=== PATIENT | male | born 1970 | race Caucasian/White ===

== ENCOUNTER 2024-10-15 15:16 | Emergency (ER) | payer BC, OTHER ==
[2024-10-15] MEDS ORDERED: Sodium Chloride 0.9% 10 ML Syringe FLUSH PRN (15:41)
[2024-10-15 15:56] LABS: BASOPHILS PERCENT AUTO 0.3 % (0.0-1.0); EOSINOPHILS ABSOLUTE AUTO 0.2 K/mm3 (0.0-0.4); EOSINOPHILS PERCENT AUTO 3.1 % (0.0-6.0); HEMOGLOBIN 17.3 gm/dl (14.0-18.0); IMMATURE GRAN ABSOLUTE AUTO 0.03 K/mm3 (0.00-0.05); IMMATURE GRAN PERCENT AUTO 0.4 % (0.0-0.4); LYMPHOCYTES PERCENT AUTO 25.5 % (24.0-44.0); MEAN CORPUSCULAR HEMOGLOBIN 28.4 pg (28.0-32.0); MEAN CORPUSCULAR HGB CONC 33.3 g/dl (32.0-36.0); MEAN CORPUSCULAR VOLUME 85.2 fl (83.0-99.0); MEAN PLATELET VOLUME 10.6 fl (9.4-12.4); MONOCYTES ABSOLUTE AUTO 0.8 K/mm3 (0.0-0.8); MONOCYTES PERCENT AUTO 10.1 % (0.0-8.0); NEUTROPHILS ABSOLUTE AUTO 4.8 K/mm3 (1.8-7.7); NEUTROPHILS PERCENT AUTO 60.6 % (41.0-71.0); PLATELET COUNT,PLT 193 K/mm3 (150-400); WHITE BLOOD CELL COUNT,WBC 7.84 K/mm3 (3.9-11.3)
[2024-10-15 16:15] LABS: A/G RATIO 0.9 (1-2); ALANINE AMINOTRANSFERASE,ALT 30 U/L (16-63); ALBUMIN 3.3 g/dl (3.4-5.0); ALKALINE PHOSPHATASE 116 U/L (46-116); ANION GAP 10.4 (5-15); ASPARTATE AMNIOTRANSFERASE,AST 15 U/L (15-37); BILIRUBIN TOTAL 0.4 mg/dL (0.2-1.0); BLOOD UREA NITROGEN,BUN 20 mg/dL (7-18); BUN/CREATININE RATIO 13.3 (14-18); C-REACTIVE PROTEIN 1.74 mg/dL (<0.30); CARBON DIOXIDE,CO2 29 mEq/L (21-32); CHLORIDE,CL 101 mEq/L (98-107); CREATININE 1.5 mg/dL (0.7-1.3); ESTIMATED GFR 55 mL/min (>60); MAGNESIUM 1.7 mg/dL (1.8-2.4); POTASSIUM,K 4.4 mEq/L (3.5-5.1); PROTEIN TOTAL,TP 6.9 g/dl (6.4-8.2); SODIUM,NA 136 mEq/L (136-145); TROPONIN I HIGH SENSITIVITY 11 pg/mL (<=76)
[2024-10-15 16:19] LABS: GLUCOSE RANDOM 355 mg/dL (70-99)
[2024-10-15] MEDS: Albuterol/Ipratropium 3.0-0.5 MG/3 ML Neb Soln NEB ONE (16:43)
[2024-10-15 16:46] LABS: HEMOGLOBIN A1C 8.7 %
[2024-10-15] MEDS: Albuterol 6.7 GM Inhaler INH ONE (17:40)
[2024-10-15] MEDS: Benzonatate 100 MG Cap PO ONE (17:41)
[2024-10-15] MEDS: Azithromycin 250 MG Tab PO ONE (17:41)
== END 2024-10-15 18:05 | disposition home or self-care (01) ==
LOC: JD.ED 15:16
DX: J40 Bronchitis, not specified as acute or chronic (principal); Z91.030 Bee allergy status; Z91.018 Allergy to other foods; Z79.899 Other long term (current) drug therapy
CPT/HCPCS: 36415; 71046; 80053; 83036; 83735; 84484; 85025; 86140; 87428; 93005; 94640; 99285; A9270; J7620-GY

== ENCOUNTER 2024-11-27 10:15 | Emergency (ER) | payer BC | END 2024-11-27 13:05 | disposition home or self-care (01) | LOC: JD.ED 10:15 | DX: E11.621 Type 2 diabetes mellitus with foot ulcer (principal); L97.529 Non-pressure chronic ulcer of other part of left foot with unspecified severity; L03.032 Cellulitis of left toe; I10 Essential (primary) hypertension; I25.2 Old myocardial infarction; E78.00 Pure hypercholesterolemia, unspecified; E66.9 Obesity, unspecified; Z68.43 Body mass index [BMI] 50.0-59.9, adult; Z90.49 Acquired absence of other specified parts of digestive tract; Z91.018 Allergy to other foods; Z91.030 Bee allergy status; Z79.4 Long term (current) use of insulin; Z79.51 Long term (current) use of inhaled steroids; Z79.899 Other long term (current) drug therapy | CPT/HCPCS: 99283; 99284 ==

== ENCOUNTER 2025-01-27 14:25 | Emergency (ER) | payer BC ==
[2025-01-27] MEDS ORDERED: Naloxone 0.4 MG/ML SDV IVPUSH PRN (15:00)
[2025-01-27 15:01] LABS: HEMATOCRIT 46.1 % (42.0-52.0); HEMOGLOBIN 15.3 gm/dl (14.0-18.0); MEAN CORPUSCULAR HEMOGLOBIN 27.4 pg (28.0-32.0); MEAN CORPUSCULAR HGB CONC 33.2 g/dl (32.0-36.0); MEAN CORPUSCULAR VOLUME 82.6 fl (83.0-99.0); MEAN PLATELET VOLUME 10.4 fl (9.4-12.4); PLATELET COUNT,PLT 192 K/mm3 (150-400); RED BLOOD CELL COUNT 5.58 M/mm3 (4.52-5.90); WHITE BLOOD CELL COUNT,WBC 9.09 K/mm3 (3.9-11.3)
[2025-01-27 15:25] LABS: A/G RATIO 0.8 (1-2); ALBUMIN 3.2 g/dl (3.4-5.0); ANION GAP 10.3 (5-15); BILIRUBIN TOTAL 0.3 mg/dL (0.2-1.0); BUN/CREATININE RATIO 13.3 (14-18); CALCIUM 8.8 mg/dL (8.5-10.1); CREATININE 1.2 mg/dL (0.7-1.3); EST CRCL DRUG DOSING (CG) 80.45 mL/min; POTASSIUM,K 4.3 mEq/L (3.5-5.1); PROTEIN TOTAL,TP 7.1 g/dl (6.4-8.2)
[2025-01-27] MEDS: Ondansetron 4 MG/2 ML SDV IVPUSH ONE (15:29)
[2025-01-27] MEDS: Morphine 2 MG/ML SYRINGE IVPUSH ONE (15:31)
[2025-01-27] MEDS: Aspirin 81 MG Tab.Chew PO ONE (15:34)
[2025-01-27 15:36] LABS: BAND PERCENT MAN 0 % (0-10); BASOPHILS PERCENT MAN 1 (0.2-1.2); EOSINOPHILS PERCENT MAN 2 % (0.8-7.0); LYMPHOCYTES % ATYPICAL MANUAL 6 %; LYMPHOCYTES PERCENT MAN 12 % (20-40); MONOCYTES PERCENT MAN 4 % (2-10)
[2025-01-27 15:38] LABS: PLATELET COUNT ESTIMATE ADEQUATE
[2025-01-27 15:51] LABS: INR 1.01; PROTHROMBIN TIME 10.7 SECONDS (9.7-12.0)
[2025-01-27 15:52] LABS: PTT,PARTIAL THROMBOPLSTIN TIME 25.4 SECONDS (21.7-31.4)
[2025-01-27] MEDS ORDERED: Sodium Chloride 0.9% 100 ML IV SCH (16:45)
[2025-01-27] MEDS: Iopamidol 755 Mg/ML 100 ML Bottle IVPUSH ONE (17:42)
[2025-01-27] MEDS: Sodium Chloride 0.9% 1,000 ML IV ONE (17:50)
[2025-01-27] MEDS: Acetaminophen/oxyCODONE 325-5 MG Tab PO ONE (17:52)
[2025-01-27] MEDS: cefTRIAXone 2 GM Vial IVPUSH ONE (17:53)
[2025-01-27] MEDS: diphenhydrAMINE 50 MG/ML SDV IVPUSH ONE (17:59)
== END 2025-01-27 19:20 | disposition home or self-care (01) ==
LOC: JD.ED 14:25
DX: R07.89 Other chest pain (principal); I10 Essential (primary) hypertension; I25.2 Old myocardial infarction; E78.00 Pure hypercholesterolemia, unspecified; J45.909 Unspecified asthma, uncomplicated; E11.9 Type 2 diabetes mellitus without complications; E66.9 Obesity, unspecified; Z95.5 Presence of coronary angioplasty implant and graft; Z79.899 Other long term (current) drug therapy; Z79.4 Long term (current) use of insulin; Z91.030 Bee allergy status; Z91.018 Allergy to other foods; Z68.43 Body mass index [BMI] 50.0-59.9, adult
CPT/HCPCS: 36415; 71045; 71045-26; 71275; 71275-26; 80053; 83930; 84484; 85007; 85027; 85610; 85730; 93005; 96374; 96375; 99285-25; A9270-GY; J0696; J2270; J2405; J7030; Q9967

== ENCOUNTER 2025-02-25 11:59 | Emergency (ER) | payer BC ==
[2025-02-25 12:40] LABS: BASOPHILS PERCENT AUTO 0.2 % (0.0-1.0); EOSINOPHILS ABSOLUTE AUTO 0.3 K/mm3 (0.0-0.4); EOSINOPHILS PERCENT AUTO 3.1 % (0.0-6.0); HEMATOCRIT 47.6 % (42.0-52.0); HEMOGLOBIN 15.4 gm/dl (14.0-18.0); IMMATURE GRAN ABSOLUTE AUTO 0.05 K/mm3 (0.00-0.05); IMMATURE GRAN PERCENT AUTO 0.6 % (0.0-0.4); LYMPHOCYTES ABSOLUTE AUTO 1.7 K/mm3 (1.0-4.8); LYMPHOCYTES PERCENT AUTO 19.3 % (24.0-44.0); MEAN CORPUSCULAR HEMOGLOBIN 27.5 pg (28.0-32.0); MEAN CORPUSCULAR HGB CONC 32.4 g/dl (32.0-36.0); MEAN PLATELET VOLUME 10.3 fl (9.4-12.4); MONOCYTES ABSOLUTE AUTO 0.8 K/mm3 (0.0-0.8); MONOCYTES PERCENT AUTO 9.2 % (0.0-8.0); NEUTROPHILS ABSOLUTE AUTO 5.9 K/mm3 (1.8-7.7); NEUTROPHILS PERCENT AUTO 67.6 % (41.0-71.0); PLATELET COUNT,PLT 228 K/mm3 (150-400)
[2025-02-25 13:03] LABS: A/G RATIO 0.7 (1-2); ANION GAP 12.9 (5-15); BILIRUBIN TOTAL 0.3 mg/dL (0.2-1.0); BUN/CREATININE RATIO 12.1 (14-18); CALCIUM 8.3 mg/dL (8.5-10.1); CREATININE 1.4 mg/dL (0.7-1.3); EST CRCL DRUG DOSING (CG) 70.13 mL/min; POTASSIUM,K 3.9 mEq/L (3.5-5.1); PROTEIN TOTAL,TP 7.2 g/dl (6.4-8.2)
== END 2025-02-25 14:07 | disposition home or self-care (01) ==
LOC: JD.ED 11:59
DX: R22.42 Localized swelling, mass and lump, left lower limb (principal); I10 Essential (primary) hypertension; J45.909 Unspecified asthma, uncomplicated; E11.9 Type 2 diabetes mellitus without complications; E78.00 Pure hypercholesterolemia, unspecified; E66.9 Obesity, unspecified; Z91.030 Bee allergy status; Z91.018 Allergy to other foods; Z79.4 Long term (current) use of insulin; Z79.899 Other long term (current) drug therapy; Z90.49 Acquired absence of other specified parts of digestive tract
CPT/HCPCS: 36415; 80053; 85025; 93971-26-LT; 93971-LT; 99284